=== PATIENT | female | born 1965 | race Caucasian/White ===

== ENCOUNTER 2022-12-26 19:59 | Emergency (ER) | payer BC ==
[~2022-12-26] VITALS: Ht 162.6 cm; Wt 108.0 kg
[2022-12-26] MEDS ORDERED: AVALIDE 300-121 EACH PO (20:29)
[2022-12-26] MEDS ORDERED: LEXAPRO20 MG PO (20:29)
[2022-12-26] MEDS ORDERED: GLUMETZA1000 MG PO (20:29)
[2022-12-26] MEDS ORDERED: GLIMEPIRIDE4 M1 PO (20:29)
== END 2022-12-27 00:02 | disposition home or self-care (01) ==
LOC: ER 19:59
DX: R10.11 Right upper quadrant pain (principal)